=== PATIENT | male | born 1960 | race Caucasian/White ===

== ENCOUNTER 2017-05-08 13:16 | Inpatient (IN) | payer OTHER ==
[~2017-05-08 13:16] MED LIST: ALBUMIN HUMAN 25% 100 ML INJ; CA CHLORIDE 10% 10 ML SYRINGE; CEFAZOLIN 1 GM INJ; ETOMIDATE 20 MG INJ
[2017-05-08] MEDS ORDERED: FENTAnyl 50 MCG/ML VIAL (15:24)
[2017-05-08] MEDS ORDERED: MIDAZOLAM 1 MG/ML 2 ML INJ (15:25)
[2017-05-08] MEDS ORDERED: LIDOCAINE 2% (SDV) 5 ML INJ (15:26)
[2017-05-08] MEDS ORDERED: PROPOFOL 20 ML ×2 (15:26)
[2017-05-08] MEDS ORDERED: ROCURONIUM 50 MG INJ (15:26)
[2017-05-08] MEDS ORDERED: SUCCINYLCHOLINE CHLORIDE 100 MG/5 ML SYG IV (15:26)
[2017-05-08] MEDS ORDERED: THROMBIN 5000 UNIT VIAL ×2 (15:40)
[2017-05-08] MEDS ORDERED: HYDROmorphONE 2 MG/ML SYG ×2 (17:44→19:19)
[2017-05-08] MEDS ORDERED: LABETALOL HCL 20MG INJ (17:44)
[2017-05-08] MEDS ORDERED: METOCLOPRAMIDE 10 MG INJ (17:52)
[2017-05-08] MEDS ORDERED: DEXAMETHASONE 4 MG/ML 1 ML INJ (17:52)
[2017-05-08] MEDS ORDERED: ONDANSETRON 4 MG INJ (17:52)
[2017-05-08 18:07] LABS: TYPE AND SCREEN 1 1
[2017-05-08] MEDS: GELATIN SIZE 100 SPONGE (18:10)
[2017-05-08] MEDS: POLYMYXIN/BACITRACIN 1L IRRIG (18:11)
[2017-05-08] MEDS: ROPIVACAINE 0.5 % 30 ML VIAL (18:11)
[2017-05-08] MEDS: NS + KCL 20 MEQ 1,000 ML IV (19:30)
[2017-05-08] MEDS ORDERED: NALOXONE (0.4 MG/ML) INJ IV (19:30)
[2017-05-08] MEDS ORDERED: NACL 0.9% 3 ML SYG IV (19:30)
[2017-05-08] MEDS ORDERED: ALBUTEROL 18 GM INHALER (19:37)
[2017-05-08] MEDS ORDERED: ONDANSETRON 4 MG INJ IV (20:00)
[2017-05-08] MEDS ORDERED: FENTAnyl 50 MCG/ML VIAL IV ×2 (20:00)
[2017-05-08] MEDS ORDERED: METOCLOPRAMIDE 10 MG INJ IV (20:00)
[2017-05-08] MEDS ORDERED: hydrALAzine 20 MG INJ IV (20:00)
[2017-05-08] MEDS ORDERED: IPRATROPIUM (NEB) 0.5 MG/2.5 ML AMP HHN (20:00)
[2017-05-08] MEDS ORDERED: DIPHENHYDRAMINE 50 MG INJ IV (20:00)
[2017-05-08] MEDS ORDERED: HYDROmorphONE (0.2 MG/ML) 10ML SYG IV ×3 (20:00)
[2017-05-08] MEDS ORDERED: MEPERIDINE 25 MG INJ IV (20:00)
[2017-05-08] MEDS ORDERED: SUGAMMADEX SODIUM 200 MG/2 ML VIAL IV (20:17)
[2017-05-08] MEDS: LABETALOL HCL 20MG INJ IV (20:21)
[2017-05-08 20:54] LABS: ADD UMIC YES; UR ASCORBIC ACID NEGATIVE (NEGATIVE); UR BILIRUBIN (Dip) NEGATIVE (NEGATIVE); UR BLOOD (Dip) 2+ mg/dL (NEGATIVE); UR CLARITY CLEAR (CLEAR); UR COLOR YELLOW (YELLOW); UR GLUCOSE (Dip) NEGATIVE (NEGATIVE); UR KETONES (Dip) NEGATIVE (NEGATIVE); UR LEUKOCYTE ESTERASE (Dip) NEGATIVE Leu/ul (NEGATIVE); UR NITRITE (Dip) NEGATIVE (NEGATIVE); UR RBC 5 /HPF (0-5); UR TOTAL PROTEIN (Dip) NEGATIVE (NEGATIVE); UR UROBILINOGEN (Dip) NEGATIVE (NEGATIVE); UR WBC 1 /HPF (0-5)
[2017-05-08] MEDS: HYDROmorphONE 0.2 MG/ML PCA IV (21:11)
[2017-05-08] MEDS: CEFAZOLIN 1 GM/50 ML (PMX) 50 ML IVPB (23:32)
[2017-05-08] MEDS: ACETAMINOPHEN 1000MG/100ML IV 100 ML IVPB (23:36)
[2017-05-09] MEDS: CARISOPRODOL 350 MG TAB PO ×4 (00:45→21:28)
[2017-05-09] MEDS: ACETAMINOPHEN 1000MG/100ML IV 100 ML IVPB ×4 (01:30→18:36)
[2017-05-09 04:45] LABS: HEMOGLOBIN 10.6 g/dl (14.0-18.0)
[2017-05-09] MEDS: CEFAZOLIN 1 GM/50 ML (PMX) 50 ML IVPB ×3 (05:13→12:01)
[2017-05-09 05:21] LABS: ANION GAP 18 (8-16); BLOOD UREA NITROGEN 15 mg/dl (7-20); CALCIUM 8.8 mg/dl (8.4-10.2); CARBON DIOXIDE 22 mmol/L (21-31); CHLORIDE 108 mmol/L (97-110); GLUCOSE 133 mg/dl (70-220); POTASSIUM 4.5 mmol/L (3.5-5.1); SODIUM 143 mmol/L (135-144)
[2017-05-09] MEDS ORDERED: METOPROLOL 5 MG INJ (07:36)
[2017-05-09] MEDS: METOPROLOL 5 MG INJ IV (07:50)
[2017-05-09] MEDS ORDERED: LEVALBUTEROL (NEB) 0.63 MG/3 ML AMP HHN (12:30)
[2017-05-09] MEDS: NS + KCL 20 MEQ 1,000 ML IV ×2 (13:53→17:15)
[2017-05-09] MEDS: FUROSEMIDE 40 MG TAB PO (13:53)
[2017-05-09] MEDS: HYDROmorphONE 0.2 MG/ML PCA IV (20:50)
[2017-05-09] MEDS: ATORVASTATIN 10 MG TAB PO (21:28)
[2017-05-10] MEDS: NS + KCL 20 MEQ 1,000 ML IV ×3 (01:22→21:02)
[2017-05-10] MEDS: ACETAMINOPHEN 1000MG/100ML IV 100 ML IVPB ×4 (01:23→21:02)
[2017-05-10 08:12] LABS: ADD MAN DIFF? NO
[2017-05-10 08:16] LABS: WHITE BLOOD COUNT 12.8 10^3/ul (4.8-10.8)
[2017-05-10 08:16] LABS: BASOPHILS % 0.2 % (0.0-2.0); EOSINOPHILS % 0.3 % (0.0-7.0); HEMATOCRIT 35.8 % (42.0-52.0); HEMOGLOBIN 12.1 g/dl (14.0-18.0); LYMPHOCYTES # 1.6 10^3/ul (0.8-2.9); LYMPHOCYTES % 12.2 % (15.0-51.0); MEAN CORPUSCULAR HEMOGLOBIN 30.9 pg (29.0-33.0); MEAN CORPUSCULAR HGB CONC 33.8 g/dl (32.0-37.0); MEAN CORPUSCULAR VOLUME 91.3 fl (82.0-101.0); MEAN PLATELET VOLUME 9.8 fl (7.4-10.4); MONOCYTES % 7.9 % (0.0-11.0); NEUTROPHIL # 10.1 10^3/ul (1.6-7.5); NEUTROPHILS % 78.5 % (39.0-77.0); PLATELET COUNT 167 10^3/UL (140-415); RED BLOOD COUNT 3.92 10^6/ul (4.70-6.10); RED CELL DISTRIBUTION WIDTH 14.4 % (11.5-14.5)
[2017-05-10 08:38] LABS: ANION GAP 16 (8-16); BLOOD UREA NITROGEN 9 mg/dl (7-20); CALCIUM 9.1 mg/dl (8.4-10.2); CARBON DIOXIDE 26 mmol/L (21-31); CHLORIDE 106 mmol/L (97-110); CREATININE 0.89 mg/dl (0.61-1.24); GLUCOSE 112 mg/dl (70-220); SODIUM 144 mmol/L (135-144)
[2017-05-10] MEDS: LISINOPRIL 5 MG TAB PO (08:51)
[2017-05-10] MEDS: ASPIRIN (EC) 81 MG TAB PO (08:51)
[2017-05-10] MEDS: SPIRONOLACTONE 25 MG TAB PO (08:51)
[2017-05-10] MEDS: FUROSEMIDE 40 MG TAB PO (08:52)
[2017-05-10] MEDS: NICOTINE (14 MG/24 HR) PATCH TRANSDERM (08:52)
[2017-05-10] MEDS: CARISOPRODOL 350 MG TAB PO ×3 (08:55→21:02)
[2017-05-10] MEDS ORDERED: METOPROLOL 25 MG TAB PO (09:00)
[2017-05-10] MEDS: ATORVASTATIN 10 MG TAB PO (21:02)
[2017-05-11] MEDS: ACETAMINOPHEN 1000MG/100ML IV 100 ML IVPB ×4 (02:53→20:44)
[2017-05-11] MEDS: NS + KCL 20 MEQ 1,000 ML IV (07:00)
[2017-05-11 07:21] LABS: ADD MAN DIFF? NO
[2017-05-11 07:27] LABS: BASOPHILS % 0.2 % (0.0-2.0); EOSINOPHILS # 0.1 10^3/ul (0.0-0.5); EOSINOPHILS % 0.9 % (0.0-7.0); HEMATOCRIT 34.6 % (42.0-52.0); HEMOGLOBIN 11.7 g/dl (14.0-18.0); LYMPHOCYTES % 20.5 % (15.0-51.0); MEAN CORPUSCULAR HEMOGLOBIN 31.2 pg (29.0-33.0); MEAN CORPUSCULAR HGB CONC 33.8 g/dl (32.0-37.0); MEAN CORPUSCULAR VOLUME 92.3 fl (82.0-101.0); MONOCYTE # 0.9 10^3/ul (0.3-0.9); MONOCYTES % 8.5 % (0.0-11.0); NEUTROPHIL # 6.9 10^3/ul (1.6-7.5); NEUTROPHILS % 68.9 % (39.0-77.0); PLATELET COUNT 143 10^3/UL (140-415); RED BLOOD COUNT 3.75 10^6/ul (4.70-6.10); RED CELL DISTRIBUTION WIDTH 14.3 % (11.5-14.5)
[2017-05-11 07:54] LABS: ANION GAP 14 (8-16); BLOOD UREA NITROGEN 12 mg/dl (7-20); CARBON DIOXIDE 27 mmol/L (21-31); CHLORIDE 106 mmol/L (97-110); GLUCOSE 110 mg/dl (70-220); SODIUM 143 mmol/L (135-144)
[2017-05-11] MEDS: NICOTINE (14 MG/24 HR) PATCH TRANSDERM (08:33)
[2017-05-11] MEDS: CARISOPRODOL 350 MG TAB PO ×3 (08:33→20:43)
[2017-05-11] MEDS: LISINOPRIL 5 MG TAB PO (08:36)
[2017-05-11] MEDS: ASPIRIN (EC) 81 MG TAB PO (08:37)
[2017-05-11] MEDS: FUROSEMIDE 40 MG TAB PO (08:37)
[2017-05-11] MEDS: SPIRONOLACTONE 25 MG TAB PO (08:39)
[2017-05-11] MEDS: ATORVASTATIN 10 MG TAB PO (20:43)
[2017-05-11] MEDS: HYDROmorphONE 0.2 MG/ML PCA IV (20:57)
[2017-05-12] MEDS: ACETAMINOPHEN 1000MG/100ML IV 100 ML IVPB ×4 (01:08→21:16)
[2017-05-12 06:27] LABS: ADD MAN DIFF? NO
[2017-05-12 06:36] LABS: BASOPHILS % 0.3 % (0.0-2.0); EOSINOPHILS # 0.1 10^3/ul (0.0-0.5); EOSINOPHILS % 1.1 % (0.0-7.0); HEMATOCRIT 35.9 % (42.0-52.0); HEMOGLOBIN 11.9 g/dl (14.0-18.0); LYMPHOCYTES # 1.7 10^3/ul (0.8-2.9); LYMPHOCYTES % 15.2 % (15.0-51.0); MEAN CORPUSCULAR HGB CONC 33.1 g/dl (32.0-37.0); MEAN CORPUSCULAR VOLUME 93.5 fl (82.0-101.0); MEAN PLATELET VOLUME 10.3 fl (7.4-10.4); MONOCYTE # 0.9 10^3/ul (0.3-0.9); MONOCYTES % 7.9 % (0.0-11.0); NEUTROPHIL # 8.3 10^3/ul (1.6-7.5); NEUTROPHILS % 73.9 % (39.0-77.0); PLATELET COUNT 166 10^3/UL (140-415); RED BLOOD COUNT 3.84 10^6/ul (4.70-6.10); RED CELL DISTRIBUTION WIDTH 14.2 % (11.5-14.5)
[2017-05-12 06:36] LABS: WHITE BLOOD COUNT 11.2 10^3/ul (4.8-10.8)
[2017-05-12 06:56] LABS: ANION GAP 16 (8-16); BLOOD UREA NITROGEN 15 mg/dl (7-20); CALCIUM 9.1 mg/dl (8.4-10.2); CARBON DIOXIDE 28 mmol/L (21-31); CHLORIDE 102 mmol/L (97-110); CREATININE 1.04 mg/dl (0.61-1.24); GLUCOSE 117 mg/dl (70-220); POTASSIUM 3.9 mmol/L (3.5-5.1); SODIUM 142 mmol/L (135-144)
[2017-05-12] MEDS: LISINOPRIL 5 MG TAB PO (08:59)
[2017-05-12] MEDS: CARISOPRODOL 350 MG TAB PO ×3 (09:02→21:16)
[2017-05-12] MEDS: NICOTINE (14 MG/24 HR) PATCH TRANSDERM (09:03)
[2017-05-12] MEDS: SPIRONOLACTONE 25 MG TAB PO (09:03)
[2017-05-12] MEDS: FUROSEMIDE 40 MG TAB PO (09:03)
[2017-05-12] MEDS: HYDROmorphONE 0.2 MG/ML PCA IV (19:34)
[2017-05-12] MEDS: ATORVASTATIN 10 MG TAB PO (21:16)
[2017-05-13] MEDS: ACETAMINOPHEN 1000MG/100ML IV 100 ML IVPB ×4 (01:24→22:43)
[2017-05-13 07:03] LABS: ADD MAN DIFF? NO
[2017-05-13 07:11] LABS: BASOPHILS % 0.3 % (0.0-2.0); EOSINOPHILS # 0.1 10^3/ul (0.0-0.5); EOSINOPHILS % 1.5 % (0.0-7.0); HEMATOCRIT 32.9 % (42.0-52.0); LYMPHOCYTES # 2.1 10^3/ul (0.8-2.9); LYMPHOCYTES % 21.9 % (15.0-51.0); MEAN CORPUSCULAR HEMOGLOBIN 31.6 pg (29.0-33.0); MEAN CORPUSCULAR HGB CONC 33.4 g/dl (32.0-37.0); MEAN CORPUSCULAR VOLUME 94.5 fl (82.0-101.0); MONOCYTE # 0.9 10^3/ul (0.3-0.9); NEUTROPHILS % 64.6 % (39.0-77.0); PLATELET COUNT 167 10^3/UL (140-415); RED BLOOD COUNT 3.48 10^6/ul (4.70-6.10); RED CELL DISTRIBUTION WIDTH 14.5 % (11.5-14.5)
[2017-05-13 07:11] LABS: WHITE BLOOD COUNT 9.3 10^3/ul (4.8-10.8)
[2017-05-13 07:23] LABS: ANION GAP 18 (8-16); BLOOD UREA NITROGEN 22 mg/dl (7-20); CALCIUM 8.9 mg/dl (8.4-10.2); CARBON DIOXIDE 27 mmol/L (21-31); CHLORIDE 101 mmol/L (97-110); CREATININE 1.08 mg/dl (0.61-1.24); GLUCOSE 94 mg/dl (70-220); POTASSIUM 3.8 mmol/L (3.5-5.1); SODIUM 142 mmol/L (135-144)
[2017-05-13] MEDS: FUROSEMIDE 40 MG TAB PO (09:00)
[2017-05-13] MEDS: LISINOPRIL 5 MG TAB PO (09:00)
[2017-05-13] MEDS: NICOTINE (14 MG/24 HR) PATCH TRANSDERM (09:34)
[2017-05-13] MEDS: CARISOPRODOL 350 MG TAB PO ×3 (09:36→21:23)
[2017-05-13] MEDS: SPIRONOLACTONE 25 MG TAB PO (09:43)
[2017-05-13] MEDS: HYDROmorphONE 0.2 MG/ML PCA IV (14:23)
[2017-05-13] MEDS: ATORVASTATIN 10 MG TAB PO (21:21)
[2017-05-14] MEDS: ACETAMINOPHEN 1000MG/100ML IV 100 ML IVPB ×4 (02:15→19:28)
[2017-05-14] MEDS: NICOTINE (14 MG/24 HR) PATCH TRANSDERM (08:21)
[2017-05-14] MEDS: SPIRONOLACTONE 25 MG TAB PO (08:22)
[2017-05-14] MEDS: CARISOPRODOL 350 MG TAB PO ×3 (08:24→21:00)
[2017-05-14] MEDS: FUROSEMIDE 40 MG TAB PO (08:25)
[2017-05-14] MEDS: LISINOPRIL 5 MG TAB PO (08:25)
[2017-05-14] MEDS: HYDROmorphONE 0.2 MG/ML PCA IV (10:05)
[2017-05-14] MEDS: ATORVASTATIN 10 MG TAB PO (21:00)
[2017-05-15] MEDS: ACETAMINOPHEN 1000MG/100ML IV 100 ML IVPB ×4 (02:21→20:18)
[2017-05-15] MEDS: HYDROmorphONE 0.2 MG/ML PCA IV (02:55)
[2017-05-15] MEDS: FUROSEMIDE 40 MG TAB PO (09:00)
[2017-05-15] MEDS: SPIRONOLACTONE 25 MG TAB PO (09:00)
[2017-05-15] MEDS: LISINOPRIL 5 MG TAB PO (09:01)
[2017-05-15] MEDS: CARISOPRODOL 350 MG TAB PO ×3 (09:01→20:20)
[2017-05-15] MEDS: NICOTINE (14 MG/24 HR) PATCH TRANSDERM (09:04)
[2017-05-15] MEDS ORDERED: BISACODYL (EC) 5 MG TAB PO (16:00)
[2017-05-15] MEDS: HYDROmorphONE 2 MG/ML SYG IV (19:28)
[2017-05-15] MEDS: DOCUSATE SODIUM 100 MG CAP PO (20:18)
[2017-05-15] MEDS: ATORVASTATIN 10 MG TAB PO (20:19)
[2017-05-15] MEDS: HYDROCODONE/APAP (5/325) TAB PO (23:04)
[2017-05-16] MEDS: HYDROmorphONE 2 MG/ML SYG IV ×4 (00:37→20:02)
[2017-05-16] MEDS: ACETAMINOPHEN 1000MG/100ML IV 100 ML IVPB ×3 (01:18→12:45)
[2017-05-16 07:28] LABS: ADD MAN DIFF? NO
[2017-05-16 07:31] LABS: BASOPHILS % 0.4 % (0.0-2.0); EOSINOPHILS # 0.1 10^3/ul (0.0-0.5); EOSINOPHILS % 1.8 % (0.0-7.0); HEMOGLOBIN 11.1 g/dl (14.0-18.0); LYMPHOCYTES # 1.8 10^3/ul (0.8-2.9); LYMPHOCYTES % 23.8 % (15.0-51.0); MEAN CORPUSCULAR HEMOGLOBIN 31.4 pg (29.0-33.0); MEAN CORPUSCULAR HGB CONC 33.6 g/dl (32.0-37.0); MEAN CORPUSCULAR VOLUME 93.5 fl (82.0-101.0); MEAN PLATELET VOLUME 9.6 fl (7.4-10.4); MONOCYTE # 0.8 10^3/ul (0.3-0.9); MONOCYTES % 9.9 % (0.0-11.0); NEUTROPHIL # 4.7 10^3/ul (1.6-7.5); NEUTROPHILS % 61.6 % (39.0-77.0); PLATELET COUNT 192 10^3/UL (140-415); RED BLOOD COUNT 3.53 10^6/ul (4.70-6.10)
[2017-05-16 07:31] LABS: WHITE BLOOD COUNT 7.6 10^3/ul (4.8-10.8)
[2017-05-16 07:58] LABS: ANION GAP 16 (8-16); BLOOD UREA NITROGEN 21 mg/dl (7-20); CARBON DIOXIDE 25 mmol/L (21-31); CHLORIDE 101 mmol/L (97-110); CREATININE 0.93 mg/dl (0.61-1.24); GLUCOSE 105 mg/dl (70-220); POTASSIUM 4.3 mmol/L (3.5-5.1); SODIUM 138 mmol/L (135-144)
[2017-05-16] MEDS: LISINOPRIL 5 MG TAB PO (08:52)
[2017-05-16] MEDS: DOCUSATE SODIUM 100 MG CAP PO ×2 (08:53→20:09)
[2017-05-16] MEDS: CARISOPRODOL 350 MG TAB PO ×3 (08:53→20:09)
[2017-05-16] MEDS: FUROSEMIDE 40 MG TAB PO (08:53)
[2017-05-16] MEDS: SPIRONOLACTONE 25 MG TAB PO (08:53)
[2017-05-16] MEDS: NICOTINE (14 MG/24 HR) PATCH TRANSDERM (08:54)
[2017-05-16] MEDS: ATORVASTATIN 10 MG TAB PO (20:09)
[2017-05-17] MEDS: HYDROmorphONE 2 MG/ML SYG IV ×4 (00:23→11:52)
[2017-05-17] MEDS: DOCUSATE SODIUM 100 MG CAP PO ×2 (08:09→20:19)
[2017-05-17] MEDS: FUROSEMIDE 40 MG TAB PO (08:09)
[2017-05-17] MEDS: SPIRONOLACTONE 25 MG TAB PO (08:09)
[2017-05-17] MEDS: NICOTINE (14 MG/24 HR) PATCH TRANSDERM (08:10)
[2017-05-17] MEDS: LISINOPRIL 5 MG TAB PO (08:10)
[2017-05-17 08:16] LABS: ANION GAP 16 (8-16); BLOOD UREA NITROGEN 23 mg/dl (7-20); CALCIUM 9.1 mg/dl (8.4-10.2); CARBON DIOXIDE 24 mmol/L (21-31); CHLORIDE 102 mmol/L (97-110); CREATININE 0.97 mg/dl (0.61-1.24); GLUCOSE 96 mg/dl (70-220); SODIUM 138 mmol/L (135-144)
[2017-05-17] MEDS: CARISOPRODOL 350 MG TAB PO ×3 (08:18→22:55)
[2017-05-17] MEDS: HYDROmorphONE 4 MG TAB PO ×2 (16:10→20:19)
[2017-05-17] MEDS: ATORVASTATIN 10 MG TAB PO (20:20)
[2017-05-18] MEDS: HYDROmorphONE 4 MG TAB PO ×6 (00:10→21:05)
[2017-05-18] MEDS: HYDROCODONE/APAP (5/325) TAB PO ×3 (06:10→18:10)
[2017-05-18] MEDS: LISINOPRIL 5 MG TAB PO (07:57)
[2017-05-18] MEDS: CARISOPRODOL 350 MG TAB PO ×3 (07:58→22:55)
[2017-05-18] MEDS: SPIRONOLACTONE 25 MG TAB PO (07:58)
[2017-05-18] MEDS: NICOTINE (14 MG/24 HR) PATCH TRANSDERM (07:58)
[2017-05-18] MEDS: DOCUSATE SODIUM 100 MG CAP PO ×2 (07:58→21:05)
[2017-05-18] MEDS: FUROSEMIDE 40 MG TAB PO (07:58)
[2017-05-18] MEDS: ATORVASTATIN 10 MG TAB PO (21:05)
[2017-05-19] MEDS: HYDROCODONE/APAP (5/325) TAB PO (00:45)
[2017-05-19] MEDS: HYDROmorphONE 4 MG TAB PO (04:14)
[2017-05-19 06:40] LABS: ADD MAN DIFF? NO
[2017-05-19 06:42] LABS: BASOPHIL # 0.1 10^3/ul (0.0-0.1); BASOPHILS % 0.7 % (0.0-2.0); EOSINOPHILS # 0.1 10^3/ul (0.0-0.5); EOSINOPHILS % 1.8 % (0.0-7.0); HEMATOCRIT 34.1 % (42.0-52.0); HEMOGLOBIN 11.5 g/dl (14.0-18.0); LYMPHOCYTES # 1.9 10^3/ul (0.8-2.9); LYMPHOCYTES % 25.8 % (15.0-51.0); MEAN CORPUSCULAR HEMOGLOBIN 31.2 pg (29.0-33.0); MEAN CORPUSCULAR HGB CONC 33.7 g/dl (32.0-37.0); MEAN CORPUSCULAR VOLUME 92.4 fl (82.0-101.0); MEAN PLATELET VOLUME 9.4 fl (7.4-10.4); MONOCYTE # 0.7 10^3/ul (0.3-0.9); MONOCYTES % 9.1 % (0.0-11.0); NEUTROPHIL # 4.3 10^3/ul (1.6-7.5); NEUTROPHILS % 59.2 % (39.0-77.0); PLATELET COUNT 223 10^3/UL (140-415); RED BLOOD COUNT 3.69 10^6/ul (4.70-6.10); RED CELL DISTRIBUTION WIDTH 13.8 % (11.5-14.5)
[2017-05-19 06:42] LABS: WHITE BLOOD COUNT 7.3 10^3/ul (4.8-10.8)
[2017-05-19 07:09] LABS: ANION GAP 17 (8-16); BLOOD UREA NITROGEN 21 mg/dl (7-20); CALCIUM 9.3 mg/dl (8.4-10.2); CARBON DIOXIDE 26 mmol/L (21-31); CHLORIDE 103 mmol/L (97-110); CREATININE 1.02 mg/dl (0.61-1.24); GLUCOSE 107 mg/dl (70-220); POTASSIUM 4.7 mmol/L (3.5-5.1); SODIUM 141 mmol/L (135-144)
[2017-05-19] MEDS: DOCUSATE SODIUM 100 MG CAP PO (09:27)
[2017-05-19] MEDS: CARISOPRODOL 350 MG TAB PO ×2 (09:28→12:36)
[2017-05-19] MEDS: SPIRONOLACTONE 25 MG TAB PO (09:30)
[2017-05-19] MEDS: LISINOPRIL 5 MG TAB PO (09:30)
[2017-05-19] MEDS: NICOTINE (14 MG/24 HR) PATCH TRANSDERM (09:30)
[2017-05-19] MEDS: FUROSEMIDE 40 MG TAB PO (09:31)
== END 2017-05-19 21:10 | disposition home health service (06) | DRG 471 ==
LOC: TEL 05-09 12:30 → REC 13:16
PROC: 0RG20J1 Fusion of 2 or more Cervical Vertebral Joints with Synthetic Substitute, Posterior Approach, Posterior Column, Open Approach (ICD-10-PCS; principal; 2017-05-08 15:00)
DX: M50.01 Cervical disc disorder with myelopathy, high cervical region (principal); I50.33 Acute on chronic diastolic (congestive) heart failure; M48.02 Spinal stenosis, cervical region; J44.9 Chronic obstructive pulmonary disease, unspecified; Z95.4 Presence of other heart-valve replacement; F17.200 Nicotine dependence, unspecified, uncomplicated; Z95.810 Presence of automatic (implantable) cardiac defibrillator
CPT/HCPCS: 36430; 71045; 72020; 72125; 80048; 81001; 85014; 85018; 85025; 86644; 86850; 86900; 86901; 86945; 87086; 88304; 88311; 93306; 97110; 97116; 97162; 97530